=== PATIENT | female | born 1965 | race Caucasian/White ===

== ENCOUNTER 2017-09-24 11:00 | Outpatient (CLI) | payer MEDICARE | END 2017-09-24 11:01 | disposition home or self-care (01) | LOC: BICMAMMO 11:00 | PROVIDERS: ATTEND Family Medicine | DX: Z12.31 Encounter for screening mammogram for malignant neoplasm of breast (principal); Z80.3 Family history of malignant neoplasm of breast | CPT/HCPCS: 77063; 77067 ==

== ENCOUNTER 2017-10-23 11:22 | Outpatient (CLI) | payer MEDICARE ==
--- NOTE | 2017-10-23 13:21 | CT ---
NONCONTRAST CT PULMONARY LUNG SCAN: CLINICAL HISTORY: Pulmonary screening. History of smoking. Family history of lung cancer. FINDINGS: There is no evidence of a suspicious pulmonary nodule, pulmonary mass, lobar consolidation, or pleura l effusion. There is mild subpleural, dependent atelectasis. Scattered vascular disease, including coronary artery calcium, is present. There is incidental note of multilevel degenerative change. Sclerosis and endplate irregularity at the presumed C7 segment ma y relate to a degenerative etiology, although it is incompletely assessed on the basis of this exam. IMPRESSION: Lung-RADS primary category 1 - No nodules demonstrated. Recommend continued annual screening with low dose CT in 12 months. Incidental note of vascular disease, including coronary artery calcification. Recommend appropriate clinical followup. POS: [facility]
== END 2017-10-23 11:23 | disposition home or self-care (01) ==
LOC: CT 11:22
PROVIDERS: ATTEND Family Medicine
DX: Z87.891 Personal history of nicotine dependence (principal)
CPT/HCPCS: G0297

== ENCOUNTER 2018-07-08 22:03 | Emergency (ER) | payer MEDICARE ==
[2018-07-08] MEDS ORDERED: Morphine 4 MG/ML VIAL ONE (23:08)
[2018-07-08 23:13] LABS: #Eosinphils 0.3 thou/uL (0.0-0.7); #Lymphocytes 1.5 thou/uL (1.20-3.40); #Monocytes 0.6 thou/uL (0.11-0.59); #Neutrophils 3.2 thou/uL (1.40-6.50); %Basophils 0.6 % (0.0-1.0); %Eosinophils 5.3 % (0.0-10.0); %Lymphocytes 27.5 % (21.0-51.0); %Monocytes 10.1 % (0.0-10.0); %Neutrophils 56.6 % (42.0-75.0); Mean Corpuscular HGB CONC 32.7 g/dL (32.0-36.0); Mean Corpuscular Hemoglobin 28.9 pg (27.0-31.0); Mean Corpuscular Volume 88.6 fL (78.0-98.0); Mean Platelet Volume 8.5 fL (7.4-10.4); Platelet Count 194 thou/uL (130-400); RBC Distribution Width 12.6 % (11.5-14.5); Red Blood Cell (RBC) Count 4.15 mill/uL (4.20-5.40); White Blood Cell (WBC) Count 5.6 thou/uL (4.8-10.8)
[2018-07-08 23:23] LABS: BHCG - Serum Negative (NEGATIVE); Pregs Control Background? CLEAR/WHITE (CLR/WHITE); Pregs Control Bar Appear? YES (CONTROL BAR)
[2018-07-08 23:32] LABS: ALT (SGPT) 24 U/L (8-55); AST (SGOT) 20 U/L (5-34); Albumin 4.3 g/dL (3.5-5.0); Alkaline Phosphatase 88 U/L (40-150); Anion Gap 12 mmol/L (10-20); BUN (Urea Nitrogen) 20 mg/dL (9.8-20.1); Bilirubin, Total 0.2 mg/dL (0.2-1.2); Calc. Creatinine Clearance 0 mL/min (70-130); Calcium 9.5 mg/dL (7.8-10.44); Carbon Dioxide 25 mmol/L (22-29); Chloride 106 mmol/L (98-107); Estimated GFR-MDRD 70; Globulin 2.4 g/dL (2.4-3.5); Glucose 118 mg/dL (70-105); Potassium 3.5 mmol/L (3.5-5.1); Protein, Total 6.7 g/dL (6.0-8.3); Sodium 139 mmol/L (136-145)
[2018-07-08 23:35] LABS: Bilirubin Negative (Negative); Blood, Urine Negative (Negative); Clarity CLEAR (Clear); Glucose, Urine (Dipstick) Negative (Negative); Leukocyte Negative (Negative); Nitrite Negative (Negative); Protein, Urine (Dipstick) Negative (Neg-Trace); Specific Gravity, Urine 1.007 (1.002-1.036); Urobilinogen 0.2 mg/dL (0.2-1.0); pH, Urine 6.5 (5.0-9.0)
--- NOTE | 2018-07-09 00:04 | CT ---
CT of abdomen and pelvis: 07/08/2018 COMPARISON: None HISTORY: Back pain, right-sided abdominal pain TECHNIQUE: Axial CT imaging at 5 mm intervals from lung bases through pubic symphysis without contras t. Coronal reformatted imaging obtained. FINDINGS: Lack of contrast media limits assessment of the viscera, bowel, vascular structures, and fo r lymphadenopathy. The visualized lung bases are unremarkable. No free intraperitoneal air or fluid. There is a benign-a ppearing small calcification near the liver dome. The gallbladder, spleen, pancreas, adrenal glands, and kidneys appear unremarkable. No evidence for nephrolithiasis or obstructive uropathy is n oted on either side. Limited assessment of the bowel demonstrates diverticulosis of the sigmoid colon with no evidence for diverticulitis. The appendix is unremarkable. There is multifocal atherosclerotic calcification of the abdominal aorta and its branches. Review of the osseous structures demonstrates lower lumbar spine facet hypertrophy and degenerative d isc disease at L4-5. No acute osseous abnormality is noted. IMPRESSION: No nephrolithiasis or evidence of obstructive uropathy.
== END 2018-07-09 00:22 | disposition home or self-care (01) ==
LOC: ERS 22:03
DX: R10.31 Right lower quadrant pain (principal); E78.5 Hyperlipidemia, unspecified; I10 Essential (primary) hypertension; F17.210 Nicotine dependence, cigarettes, uncomplicated; Z79.899 Other long term (current) drug therapy
CPT/HCPCS: 36415; 74176; 80053; 81003; 84703; 85025; 96374; J2270

== ENCOUNTER 2019-06-13 09:44 | Observation (INO) | payer MEDICARE ==
[2019-06-13] MEDS ORDERED: Nitroglycerin 0.4 MG TAB 1 EACH ONE (10:09)
[2019-06-13] MEDS ORDERED: Aspirin Chewable 81 MG TAB ONE (10:09)
--- NOTE | 2019-06-13 10:21 | RAD ---
AP CHEST: Date: 06/13/2019 HISTORY: Chest pain. FINDINGS: The lung caicedo are clear. Heart and mediastinum appear normal. Vasculature normal. IMPRESSION: No acute findings. POS: [facility]
[2019-06-13 10:29] LABS: #Eosinphils 0.2 thou/uL (0.0-0.7); #Lymphocytes 1.5 thou/uL (1.20-3.40); #Monocytes 0.3 thou/uL (0.11-0.59); #Neutrophils 2.9 thou/uL (1.40-6.50); %Basophils 0.4 % (0.0-1.0); %Eosinophils 4.3 % (0.0-10.0); %Lymphocytes 30.3 % (21.0-51.0); %Monocytes 5.9 % (0.0-10.0); Hemoglobin 14.3 g/dL (12.0-16.0); Mean Corpuscular HGB CONC 33.9 g/dL (32.0-36.0); Mean Corpuscular Hemoglobin 30.1 pg (27.0-31.0); Mean Corpuscular Volume 88.7 fL (78.0-98.0); Mean Platelet Volume 8.2 fL (7.4-10.4); Platelet Count 232 thou/uL (130-400); RBC Distribution Width 12.5 % (11.5-14.5); Red Blood Cell (RBC) Count 4.75 mill/uL (4.20-5.40); White Blood Cell (WBC) Count 4.9 thou/uL (4.8-10.8)
[2019-06-13 10:59] LABS: ALT (SGPT) 29 U/L (8-55); AST (SGOT) 21 U/L (5-34); Albumin 4.7 g/dL (3.5-5.0); Alkaline Phosphatase 102 U/L (40-110); Anion Gap 13 mmol/L (10-20); BUN (Urea Nitrogen) 15 mg/dL (9.8-20.1); Bilirubin, Total 0.3 mg/dL (0.2-1.2); Calc. Creatinine Clearance 0 mL/min (70-130); Carbon Dioxide 29 mmol/L (22-29); Chloride 103 mmol/L (98-107); Estimated GFR-MDRD 65; Globulin 2.6 g/dL (2.4-3.5); Glucose 110 mg/dL (70-105); Potassium 3.7 mmol/L (3.5-5.1); Protein, Total 7.3 g/dL (6.0-8.3); Sodium 141 mmol/L (136-145)
[2019-06-13 14:05] VITALS: BMI 33.0
[2019-06-13 14:23] LABS: Troponin I Less than 0.010 ng/mL (< 0.028)
[2019-06-13] MEDS: Ibuprofen 200 MG TAB PO PRN (14:43)
[2019-06-13] MEDS ORDERED: Acetaminophen 500 MG TAB PO PRN (14:47)
[2019-06-13] MEDS ORDERED: hydrALAZINE 20 MG/ML VIAL SLOW IVP PRN (14:47)
[2019-06-13] MEDS ORDERED: Ondansetron ODT 4 MG TAB PO PRN (14:47)
[2019-06-13] MEDS ORDERED: Nitroglycerin 0.4 MG TAB (25 Tab Bottle) PO PRN (14:47)
[2019-06-13] MEDS ORDERED: Ondansetron PF 4 MG/2 ML Vial IVP PRN (14:47)
[2019-06-13 17:14] LABS: Troponin I Less than 0.010 ng/mL (< 0.028)
--- NOTE | 2019-06-13 19:13 | HP ---
PRIMARY CARE PROVIDER: Dr. Karon Terry. CHIEF COMPLAINT: Chest pain. HISTORY OF PRESENT ILLNESS: This is a 53-year-old female, who presents to [facility] Emergency Department complaining of 1 to 2 day history of increasing left upper chest wall, left arm, and neck pain. The patient noted increasing tightness in her upper neck and lower suboccipital region approximately a week prior to this evaluation. The patient noted some increased pain in her shoulder and axillary region on the left. The patient became concerned when she felt like she was having a heart condition. The patient states she underwent a cardiac catheterization approximately 2 years prior to this evaluation showing a 50% stenosis, treated medically. The patient states she has not had a followup stress test or followup with her radiosonde operator, Dr. Null, since the heart catheterization. The patient denied any prominent cough, fever, chills, trauma, repetitive injury, or travel history. The patient denies any family members who are sick. The patient admits that she has been compliant with her medication regimen and takes aspirin 325 mg daily. The patient states she had no positional changes to her pain and did not take any other home remedies for relief. In the emergency room, the patient underwent general evaluation including basic metabolic screening, cardiac biomarkers, and chest imaging, which were all negative. The patient received sublingual nitroglycerin and aspirin 324 mg. PAST MEDICAL HISTORY: 1. Coronary artery disease, medically managed. 2. Hypertension, stable. 3. Hyperlipidemia. 4. Tobacco abuse, ongoing. PAST SURGICAL HISTORY: 1. Status post cardiac catheterization. 2. Status post spinal surgery x3. 3. Status post repair of right index finger. 4. Status post section. CURRENT MEDICATIONS: 1. Amlodipine 10 mg p.o. daily. 2. Aspirin 325 mg p.o. daily. 3. [place]-3 fatty acids 1000 mg p.o. daily. 4. Hydrochlorothiazide 12.5 mg p.o. daily. 5. Ibuprofen 600 mg p.o. q.8 hours p.r.n. 6. Metoprolol tartrate 50 mg p.o. daily. 7. Aleve 220 mg p.o. b.i.d. 8. Crestor 10 mg p.o. daily. ALLERGIES: LISINOPRIL. FAMILY HISTORY: Positive for factor V Leiden deficiency. Father with a history of myocardial infarction in his 50s. SOCIAL HISTORY: and resides in [place], [place]. Smokes up to half a pack of cigarettes daily. No alcohol or illicit drug use. Functional of all activities of daily living. Unemployed. REVIEW OF SYSTEMS: CONSTITUTIONAL: Negative for weight loss or gain, ability to conduct usual activities. SKIN: Negative for rash, itching. EYES: Negative for double vision, pain. ENT/MOUTH: Negative for nose bleeding, neck stiffness, pain, tenderness. CARDIOVASCULAR: Negative for palpitations, dyspnea on exertion, orthopnea. RESPIRATORY: Negative for shortness of breath, wheezing, cough, hemoptysis, fever or night sweats. GASTROINTESTINAL: Negative for poor appetite, abdominal pain, heartburn, nausea, vomiting, constipation, or diarrhea. GENITOURINARY: Negative for urgency, frequency, dysuria, nocturia. MUSCULOSKELETAL: Negative for pain, swelling. NEUROLOGIC/PSYCHIATRIC: Negative for anxiety, depression. ALLERGY/IMMUNOLOGIC: Negative for skin rash, bleeding tendency. Otherwise, negative except as stated per HPI. PHYSICAL EXAMINATION: VITAL SIGNS: On admission, blood pressure 138/74, pulse 78, respiratory rate 18, temperature 98.2 degrees Fahrenheit, and O2 saturation 97% on room air. GENERAL APPEARANCE: This is a 53-year-old female, alert and oriented x3, pleasant, conversant, in no acute distress. HEENT: Pupils are equal, round, reactive to light and accommodation. Extraocular muscles are intact. No scleral icterus. No conjunctival injection. Nares are patent. OP is clear. Teeth in fair repair. NECK: Supple. No cervical adenopathy. No thyromegaly. No carotid bruits. No JVD appreciated. Cervical spine with full active and passive range of motion. Mild tenderness to palpation in the paravertebral musculature of the cervical spine, left greater than right. No meningeal signs noted. No thyromegaly. CHEST: Lungs are clear to auscultation bilaterally. CARDIOVASCULAR: S1 and S2 without noted murmur, rub, or gallop. ABDOMEN: Obese, soft, nontender, and nondistended. Bowel sounds are positive in all 4 quadrants. There is no hepatosplenomegaly. No abdominal bruits. No rebound or guarding appreciated. EXTREMITIES: Warm and dry with fair turgor. No clubbing, cyanosis, or asymmetric edema appreciated. Pulses palpable distally at the dorsalis pedis, posterior tibial, and popliteal arteries bilaterally. Capillary refill less than 2 seconds. NEUROLOGIC: Cranial nerves 2 through 12 are grossly intact. No focal or lateralizing signs appreciated. PERTINENT LABORATORY AND X-RAY FINDINGS: Complete metabolic profile within normal limits. Troponin I negative x2. CBC within normal limits. Portable chest x-ray dated 06/13/2019 showed no acute cardiopulmonary process. EKG dated 06/13/2019 by my interpretation shows sinus mechanism with heart rates in the 70s. Normal R-wave progression noted in the precordial leads. T-wave inversion in lead V1 and V2. Normal axis. No acute ST-T wave changes appreciated. ASSESSMENT AND PLAN: 1. Chest pain. We will place in observation status on the telemetry unit. We will continue serial cardiac biomarkers to complete a third set. We will proceed with exercise Cardiolite stress testing in the a.m. Check fasting lipid profile. Continue aspirin 325 mg daily. 2. Hypertension. Continue home blood pressure regimen and monitor clinical response. 3. Tobacco abuse. We will offer smoking cessation resources prior to discharge. 4. Coronary artery disease. Medically managed as an outpatient. We will continue workup as stated in #1. No current evidence to suggest acute coronary syndrome. 5. Prophylaxis. SCDs while in bed. Pepcid 20 mg p.o. b.i.d. 6. Code status is full. Surrogate medical decision maker is the patient's spouse. Job ID: [id number]
[2019-06-13] MEDS: Famotidine 20 MG TAB PO SCH (22:57)
[2019-06-14 05:17] LABS: Cardiac Risk 4.1 (Less than 4.5)
[2019-06-14] MEDS: Amlodipine 10 MG TAB PO SCH (08:03)
[2019-06-14] MEDS: Famotidine 20 MG TAB PO SCH ×2 (08:03→21:38)
[2019-06-14] MEDS: Rosuvastatin 10 MG TAB PO SCH (08:03)
[2019-06-14] MEDS ORDERED: Aspirin 325 MG TAB PO SCH (09:00)
[2019-06-14] MEDS ORDERED: Fish Oil 1,000 MG CAP PO SCH (09:00)
--- NOTE | 2019-06-14 09:04 | PDOC.HOSPP ---
- Subjective Encounter Date: 06/14/19 Encounter Time: 12:10 Subjective: Patient with some persistent soreness to left anteriolateral chest wall and shoulder. No other symptoms. - Objective Vital Signs & Weight: Vital Signs (12 hours) Temp Pulse Resp BP BP Pulse Ox 06/14/19 07:21 98.5 F 76 18 147/74 H 95 06/14/19 03:56 98.9 F 70 14 110/60 95 Weight Weight 192 lb 14.472 oz Result Diagrams: 06/13/19 10:19 06/13/19 10:19 Hospitalist ROS - Review of Systems Constitutional: denies: fever, chills Respiratory: denies: cough, shortness of breath Cardiovascular: reports: chest pain. denies: palpitations, orthopnea Gastrointestinal: denies: nausea, vomiting, abdominal pain - Medication Medications: Active Medications Generic Name Dose Route Start Last Admin Trade Name Freq PRN Reason Stop Dose Admin Amlodipine Besylate 10 mg 06/14/19 09:00 06/14/19 08:03 Norvasc PO 10 mg DAILY NORMAN Administration Aspirin 325 mg 06/14/19 09:00 06/14/19 08:03 Aspirin PO 325 mg DAILY NORMAN Administration Famotidine 20 mg 06/13/19 21:00 06/14/19 08:03 Pepcid PO 20 mg BID NORMAN Administration Fish Oil 1,000 mg 06/14/19 09:00 06/14/19 08:03 Fish Oil PO 1,000 mg DAILY NORMAN Administration Ibuprofen 400 mg 06/13/19 14:24 06/13/19 14:43 Motrin PO 400 mg Q6H PRN Administration Pain Rosuvastatin Calcium 10 mg 06/14/19 09:00 06/14/19 08:03 Crestor PO 10 mg DAILY NORMAN Administration - Exam General Appearance: NAD, awake alert ENT: moist mucosa Heart: RRR, no murmur, no gallops, no rubs Respiratory: CTAB, no wheezes, no rales Respiratory - other findings: some TTP left anterior chest wall Gastrointestinal: soft, non-tender, non-distended, normal bowel sounds Extremities: no edema Psychiatric: normal affect, normal behavior, A&O x 3 Hosp A/P (1) Chest pain, rule out acute myocardial infarction Code(s): R07.9 - CHEST PAIN, UNSPECIFIED Status: Acute (2) CAD (coronary artery disease) Code(s): I25.10 - ATHSCL HEART DISEASE OF [place] CORONARY ARTERY W/O ANG PCTRS Status: Chronic Qualifiers: Coronary Disease-Associated Artery/Lesion type: [place] artery (3) HTN (hypertension) Code(s): I10 - ESSENTIAL (PRIMARY) HYPERTENSION Status: Chronic (4) HLD (hyperlipidemia) Code(s): E78.5 - HYPERLIPIDEMIA, UNSPECIFIED Status: Chronic (5) Tobacco abuse Code(s): Z72.0 - TOBACCO USE Status: Chronic - Plan Pain most likely musculoskeletal, however patient with some abnormality on the stress test. I spoke with Dr. Aguilera and he will evaluate the patient and determine if she can go home or needs cath. Continue BP meds and statin Home when ok with cardiology.
[2019-06-14] MEDS: Metoprolol Tartrate 50 MG TAB PO SCH (09:29)
--- NOTE | 2019-06-14 11:42 | NM ---
EXAM: NM Cardiac Stress W EF WF PROVIDED CLINICAL HISTORY: Chest pain. History of cardiac catheterization 2 years ago. History coronary artery disease and hyper tension. COMPARISON: None FINDINGS: This examination was performed as an exercise stress myocardial perfusion study following the routine Arivn protocol. The resting heart rate is 67 bpm with maximal heart rate of 146 bpm. This represents 87% of the maximal predicted affective heart rate. There is normal uptake and distribution of radiotracer seen throughout the left ventricular myocardiu m. No reversible defect is seen between the stress and resting acquisitions. Quantitative analysis also shows no significant reversible defect. Gated images show normal ventricular wall motion and wal l thickening. The transient ischemic dilatation ratio is elevated at 1.3, and a normal ratio is 1.22 or less. Calculated left ventricular ejection fraction is 82%. IMPRESSION: 1. Normal myocardial perfusion study without evidence of a reversible defect seen to suggest ischemia . 2. Normal LVEF of 82%. 3. Elevation in transient ischemic dilatation ratio which is 1.3
[2019-06-14] MEDS: Ibuprofen 200 MG TAB PO PRN (14:21)
[2019-06-14] MEDS: Nicotine 14 MG PATCH TOP SCH (17:38)
--- NOTE | 2019-06-14 18:50 | CON ---
DATE OF CONSULTATION: HISTORY OF PRESENT ILLNESS: The patient is a 53-year-old woman who presents for evaluation of chest discomfort. The patient was seen initially in 2018. She underwent a cardiac catheterization and found to have a 50% LAD lesion. The patient was placed on medical therapy. She unfortunately has continued to smoke. The patient states about a week prior to admission, she developed neck discomfort. The patient subsequently developed pain down her left arm. For the past 2 days , she has noticed having left-sided chest discomfort that lasted several minutes. She came to the emergency room where she received nitroglycerin with temporary resolution of her discomfort. The patient reports she continues to have chest discomfort. The patient states her discomfort is associated with dyspnea. PAST MEDICAL HISTORY: 1. Coronary artery disease. 2. Hypertension. 3. Dyslipidemia. PAST SURGICAL HISTORY: 1. Back surgery. 2. . 3. Eye surgery. 4. Finger surgery. SOCIAL HISTORY: The patient smokes a half pack per day. ALLERGIES: LISINOPRIL. FAMILY HISTORY: Positive for family history of heart disease. REVIEW OF SYSTEMS: Ten-point system otherwise unremarkable. PHYSICAL EXAMINATION: GENERAL: A well-developed woman, in no acute distress. VITAL SIGNS: Blood pressure 117/63. NECK: No jugular venous distention. LUNGS: Clear to auscultation. HEART: Regular rate and rhythm. Normal S1 and S2. No murmurs. ABDOMEN: Nondistended. EXTREMITIES: No edema. VASCULAR: Radial pulses are 2+. LABORATORY DATA: Sodium 141, potassium 3.7, chloride 103, bicarbonate 29, BUN 15, creatinine 0.91, and glucose 110. Troponin less than 0.01. Her White blood cell count 4.9, hemoglobin 14.3, hematocrit 42.1, and platelets 232. EKG revealed normal sinus rhythm with a T-wave abnormality, suggestive of ischemia. Cardiolite stress test, :The patient exercised for 5 minutes and 30 seconds on a Arvin protocol. There was no evidence of ischemia. The ejection rate was 82%. The TID was 1.3. IMPRESSION: 1. Chest pain with some features suggestive of angina. 2. History of coronary artery disease. 3. Hypertension. 4. Dyslipidemia. 5. Tobacco abuse. PLAN: The patient had TID on the nuclear stress test. Her chest pain has some features suggestive of ischemic heart disease. I will treat the patient's with Lovenox. I would highly recommend the patient discontinue smoking. We will switch the patient to Vascepa for protection against cardiac events. We will follow this patient with you through her hospitalization. Job ID: [id number] MTDD
[2019-06-14] MEDS: Nitroglycerin 2% Ointment 1 INCH/1 GM Packet TOP SCH (21:37)
[2019-06-14] MEDS: Enoxaparin Sodium 100 MG/ML SYRINGE SC SCH (21:38)
[2019-06-14] MEDS: Icosapent Ethyl 1 GM CAPSULE PO SCH (21:42)
[2019-06-15] MEDS: Nitroglycerin 2% Ointment 1 INCH/1 GM Packet TOP SCH ×3 (04:48→20:05)
[2019-06-15] MEDS: Ibuprofen 200 MG TAB PO PRN ×2 (04:51→17:15)
--- NOTE | 2019-06-15 08:20 | PDOC.HOSPP ---
- Subjective Encounter Date: 06/15/19 Encounter Time: 11:00 Subjective: Chest pain improved, though still with some. No SOB. - Objective Vital Signs & Weight: Vital Signs (12 hours) Temp Pulse Resp BP Pulse Ox 06/15/19 07:40 98.2 F 76 13 132/83 96 06/15/19 03:41 98.5 F 79 16 114/62 94 L Weight Weight 192 lb 14.472 oz I&O: 06/14/19 06/15/19 06/16/19 06:59 06:59 06:59 Intake Total 750 Balance 750 Result Diagrams: 06/13/19 10:19 06/13/19 10:19 Hospitalist ROS - Review of Systems Constitutional: denies: fever, chills Respiratory: denies: cough, shortness of breath Cardiovascular: reports: chest pain. denies: palpitations, orthopnea Gastrointestinal: denies: nausea, vomiting, abdominal pain - Medication Medications: Active Medications Generic Name Dose Route Start Last Admin Trade Name Freq PRN Reason Stop Dose Admin Amlodipine Besylate 10 mg 06/14/19 09:00 06/14/19 08:03 Norvasc PO 10 mg DAILY NORMAN Administration Enoxaparin Sodium 90 mg 06/14/19 21:00 06/14/19 21:38 Lovenox SC 90 mg 0900,2100 NORMAN Administration Famotidine 20 mg 06/13/19 21:00 06/14/19 21:38 Pepcid PO 20 mg BID NORMAN Administration Ibuprofen 400 mg 06/13/19 14:24 06/15/19 04:51 Motrin PO 400 mg Q6H PRN Administration Pain Metoprolol Tartrate 50 mg 06/14/19 09:00 06/14/19 09:29 Lopressor PO Not Given DAILY NORMAN Miscellaneous Medication 2 gm 06/14/19 21:00 06/14/19 21:42 Vascepa PO 2 gm BID NORMAN Administration Nicotine 14 mg 06/14/19 18:00 06/14/19 17:38 Nicoderm Patch TOP 14 mg Q24HR NORMAN Administration Nitroglycerin 0.5 inch 06/14/19 22:00 06/15/19 04:48 Nitro-Bid 2% Ointment TOP 0.5 inch Q8HR NORMAN Administration Rosuvastatin Calcium 10 mg 06/14/19 09:00 06/14/19 08:03 Crestor PO 10 mg DAILY NORMAN Administration - Exam General Appearance: NAD, awake alert ENT: moist mucosa Heart: RRR, no murmur, no gallops, no rubs Respiratory: CTAB, no wheezes, no rales, no ronchi Gastrointestinal: soft, non-tender, non-distended, normal bowel sounds Psychiatric: normal affect, normal behavior, A&O x 3 Hosp A/P (1) Chest pain, rule out acute myocardial infarction Code(s): R07.9 - CHEST PAIN, UNSPECIFIED Status: Acute (2) CAD (coronary artery disease) Code(s): I25.10 - ATHSCL HEART DISEASE OF [place] CORONARY ARTERY W/O ANG PCTRS Status: Chronic Qualifiers: Coronary Disease-Associated Artery/Lesion type: [place] artery (3) HTN (hypertension) Code(s): I10 - ESSENTIAL (PRIMARY) HYPERTENSION Status: Chronic (4) HLD (hyperlipidemia) Code(s): E78.5 - HYPERLIPIDEMIA, UNSPECIFIED Status: Chronic (5) Tobacco abuse Code(s): Z72.0 - TOBACCO USE Status: Chronic - Plan TID elevated on stress test, Dr. Aguilera consulted, started Lovenox and adjusting medications, possible cath tomorrow by Dr. Null Continue BP meds and statin
[2019-06-15] MEDS: Amlodipine 10 MG TAB PO SCH (08:31)
[2019-06-15] MEDS: Aspirin Chewable 81 MG TAB PO SCH (08:32)
[2019-06-15] MEDS: Enoxaparin Sodium 100 MG/ML SYRINGE SC SCH ×2 (08:34→20:04)
[2019-06-15] MEDS: Icosapent Ethyl 1 GM CAPSULE PO SCH ×2 (08:35→20:04)
[2019-06-15] MEDS: Metoprolol Tartrate 50 MG TAB PO SCH (08:35)
[2019-06-15] MEDS: Rosuvastatin 10 MG TAB PO SCH (08:35)
[2019-06-15] MEDS: Famotidine 20 MG TAB PO SCH ×2 (08:37→20:04)
[2019-06-15] MEDS: Nicotine 14 MG PATCH TOP SCH (17:15)
[2019-06-16] MEDS: Rosuvastatin 10 MG TAB PO SCH (05:53)
[2019-06-16] MEDS: Aspirin Chewable 81 MG TAB PO SCH (05:53)
[2019-06-16] MEDS: Amlodipine 10 MG TAB PO SCH (05:54)
[2019-06-16] MEDS: Famotidine 20 MG TAB PO SCH ×2 (05:54→21:00)
[2019-06-16] MEDS: Icosapent Ethyl 1 GM CAPSULE PO SCH ×2 (05:54→21:00)
[2019-06-16] MEDS: Metoprolol Tartrate 50 MG TAB PO SCH (05:54)
[2019-06-16] MEDS: Nitroglycerin 2% Ointment 1 INCH/1 GM Packet TOP SCH ×3 (05:55→21:01)
--- NOTE | 2019-06-16 07:02 | PDOC.HOSPP ---
- Subjective Encounter Date: 06/16/19 Encounter Time: 09:50 Subjective: Patient just back from cath. Mild chest wall pain. No other complaints. - Objective Vital Signs & Weight: Vital Signs (12 hours) Temp Pulse Resp BP BP Pulse Ox 06/16/19 05:54 77 116/81 06/16/19 03:40 97.7 F 77 18 116/81 95 06/15/19 20:00 98.2 F 78 18 142/72 H 98 Weight Weight 192 lb 14.472 oz I&O: 06/15/19 06/16/19 06/17/19 06:59 06:59 06:59 Intake Total 750 1540 Balance 750 1540 Result Diagrams: 06/13/19 10:19 06/13/19 10:19 Hospitalist ROS - Review of Systems Constitutional: denies: fever, chills Respiratory: denies: cough, shortness of breath Cardiovascular: reports: chest pain. denies: palpitations, orthopnea Gastrointestinal: denies: nausea, vomiting, abdominal pain - Medication Medications: Active Medications Generic Name Dose Route Start Last Admin Trade Name Freq PRN Reason Stop Dose Admin Amlodipine Besylate 10 mg 06/14/19 09:00 06/16/19 05:54 Norvasc PO 10 mg DAILY NORMAN Administration Aspirin 81 mg 06/15/19 09:00 06/16/19 05:53 Aspirin Chewable PO 81 mg DAILY NORMAN Administration Famotidine 20 mg 06/13/19 21:00 06/16/19 05:54 Pepcid PO 20 mg BID NORMAN Administration Ibuprofen 400 mg 06/15/19 17:08 06/15/19 17:15 Motrin PO 400 mg Q6H PRN Administration Pain Metoprolol Tartrate 50 mg 06/14/19 09:00 06/16/19 05:54 Lopressor PO 50 mg DAILY NORMAN Administration Miscellaneous Medication 2 gm 06/14/19 21:00 06/16/19 05:54 Vascepa PO 2 gm BID NORMAN Administration Nicotine 14 mg 06/14/19 18:00 06/15/19 17:15 Nicoderm Patch TOP 14 mg Q24HR NORMAN Administration Nitroglycerin 0.5 inch 06/14/19 22:00 06/16/19 05:55 Nitro-Bid 2% Ointment TOP Not Given Q8HR [facility] Rosuvastatin Calcium 10 mg 06/14/19 09:00 06/16/19 05:53 Crestor PO 10 mg DAILY NORMAN Administration - Exam General Appearance: NAD, awake alert ENT: moist mucosa Heart: RRR, no murmur, no gallops, no rubs Respiratory: CTAB, no wheezes, no rales, no ronchi Gastrointestinal: soft, non-tender, non-distended, normal bowel sounds Musculoskeletal: normal tone, normal strength Psychiatric: normal affect, normal behavior, A&O x 3 Hosp A/P (1) Chest pain, rule out acute myocardial infarction Code(s): R07.9 - CHEST PAIN, UNSPECIFIED Status: Acute (2) CAD (coronary artery disease) Code(s): I25.10 - ATHSCL HEART DISEASE OF [place] CORONARY ARTERY W/O ANG PCTRS Status: Chronic Qualifiers: Coronary Disease-Associated Artery/Lesion type: [place] artery (3) HTN (hypertension) Code(s): I10 - ESSENTIAL (PRIMARY) HYPERTENSION Status: Chronic (4) HLD (hyperlipidemia) Code(s): E78.5 - HYPERLIPIDEMIA, UNSPECIFIED Status: Chronic (5) Tobacco abuse Code(s): Z72.0 - TOBACCO USE Status: Chronic - Plan Cath with progression of RCA disease, no intervention, also with 50% LAD lesion with sluggish flow resolved with adenosine No stents, no surgery recommended. Dr. Null to adjust medications Continue BP meds and statin Home when ok with Dr. Null
[2019-06-16] MEDS ORDERED: Iopamidol 370 76% 100 ML VIAL ONE (08:08)
--- NOTE | 2019-06-16 08:12 | PDOC.CPN ---
- Subjective Date: 06/16/19 Time: 08:00 - Review of Systems General: reports: fever/chills Respiratory: reports: cough, congestion Cardiovascular: reports: chest pain Gastrointestinal: reports: nausea, vomiting Musculoskeletal: reports: swelling Neurological: reports: weakness - Objective Allergies/Adverse Reactions: Allergies Allergy/AdvReac Type Severity Reaction Status Date / Time lisinopril Allergy Verified 06/13/19 13:01 Visit Medications: Current Medications Acetaminophen (Tylenol) 1,000 mg PO Q6H PRN PRN Reason: Mild Pain (1-3) Amlodipine Besylate (Norvasc) 10 mg PO DAILY [facility] Last Admin: 06/16/19 05:54 Dose: 10 mg Aspirin (Aspirin Chewable) 81 mg PO DAILY [facility] Last Admin: 06/16/19 05:53 Dose: 81 mg Famotidine (Pepcid) 20 mg PO BID [facility] Last Admin: 06/16/19 05:54 Dose: 20 mg Hydralazine HCl (Apresoline) 10 mg SLOW IVP Q4H PRN PRN Reason: SBP > 180 and HR < 70 Ibuprofen (Motrin) 400 mg PO Q6H PRN PRN Reason: Pain Last Admin: 06/15/19 17:15 Dose: 400 mg Metoprolol Tartrate (Lopressor) 50 mg PO DAILY [facility] Last Admin: 06/16/19 05:54 Dose: 50 mg Miscellaneous Medication (Vascepa) 2 gm PO BID [facility] Last Admin: 06/16/19 05:54 Dose: 2 gm Nicotine (Nicoderm Patch) 14 mg TOP Q24HR [facility] Last Admin: 06/15/19 17:15 Dose: 14 mg Nitroglycerin (Nitrostat) 0.4 mg PO Q5MIN PRN PRN Reason: Chest Pain Nitroglycerin (Nitro-Bid 2% Ointment) 0.5 inch TOP Q8HR [facility] Last Admin: 06/16/19 05:55 Dose: Not Given Ondansetron HCl (Zofran Odt) 4 mg PO Q6H PRN PRN Reason: Nausea/Vomiting Ondansetron HCl (Zofran) 4 mg IVP Q6H PRN PRN Reason: Nausea/Vomiting Rosuvastatin Calcium (Crestor) 10 mg PO DAILY [facility] Last Admin: 06/16/19 05:53 Dose: 10 mg Vital Signs & Weight: Vital Signs Temp Pulse Resp BP BP Pulse Ox 06/16/19 07:07 98.1 F 63 16 123/78 98 06/16/19 05:54 77 116/81 06/16/19 03:40 97.7 F 77 18 116/81 95 Weight 192 lb 14.472 oz - Quality Measures Condition: Coronary Artery Disease CV meds: Beta Padmini: Yes, Statin: Yes, ASA: Yes - Physical Exam General: alert & oriented x3 HEENT: normocephaly Neck: supple neck, no masses, no lymphadenopathy Cardiac: regular rate and rhythm Lungs: clear to auscultation Neuro: grossly intact Abdomen: unremarkable Extremities: no cyanosis, no clubbing, no edema Musculoskeletal: normal range of motion - Labs Result Diagrams: 06/13/19 10:19 06/13/19 10:19 Troponin/CKMB Troponin I Less than 0.010 ng/mL (< 0.028) 06/13/19 16:30 - Telemetry Sinus rhythms and dysrhythmias: sinus rhythm (early AM while sleeping, sinus marlon. one episode of 2.6 second pause.) - Assessment/Plan Assessment/Plan: 1. Chest pain, hx. of CAD, RCA 5o% in 2018. Calcium and plaque in proximal LAD. elevated TID ratio on nucklear study this admission. The pain started in the neck posteriorly and then radiated down the arm. She occasionally has chest pain in the lateral pectrial area that is associated with the arm pain. She has point tendernes in the upper pain with pain radiating down the arm when pressure is applied over the area. I suspect she has a nerve impingement but due to her prior history of CAD and an abnormal stress test it may be better to re-evaluate the coronaries.. 2. Tobacco abuse. She had stopped smoking about 2 years ago but recently resumed the habit about 2 months ago, she says she will stop again, she was trying to lose weight, 3. Dyslipidemia. Continue statin. 4. HTN. Continue betablocker. I have discusssed the cath procedure and risks to include bleeding,infection,NC, CVA renal insufficiency,allergic reaction or . She understands and agrees to proceed with the cath.
[2019-06-16] MEDS ORDERED: Verapamil 5 MG/2 ML VIAL ONE (08:27)
[2019-06-16] MEDS ORDERED: Heparin 10,000 UNITS/1 ML VIAL ONE (08:27)
[2019-06-16] MEDS ORDERED: Nitroglycerin 100MG/250ML BOT 250 ML ONE (08:27)
[2019-06-16] MEDS ORDERED: Midazolam HCl 2 mg/2 ml Vial ONE (08:31)
[2019-06-16] MEDS ORDERED: Fentanyl 100 MCG/2 ML VIAL ONE (08:31)
[2019-06-16] MEDS ORDERED: Adenosine 6 MG/2 ML VIAL ONE (09:20)
[2019-06-16] MEDS ORDERED: Nitroglycerin 0.4 MG TAB (25 Tab Bottle) SL PRN (10:07)
[2019-06-16] MEDS ORDERED: Acetaminophen/Codeine 30-300mg Tablet PO PRN ×2 (10:07)
[2019-06-16] MEDS ORDERED: Sodium Chloride 0.9% 200 ML IV PRN (10:07)
[2019-06-16] MEDS: Ibuprofen 200 MG TAB PO PRN (13:07)
[2019-06-17] MEDS: Nitroglycerin 2% Ointment 1 INCH/1 GM Packet TOP SCH (06:02)
--- NOTE | 2019-06-17 07:39 | PDOC.HOSPP ---
- Subjective Encounter Date: 06/17/19 Encounter Time: 10:30 Subjective: Patient with improved chest pain. No SOB. Ready to go home. - Objective Vital Signs & Weight: Vital Signs (12 hours) Temp Pulse Resp BP Pulse Ox 06/17/19 03:30 97.9 F 78 18 122/80 96 06/17/19 00:34 99 06/16/19 23:31 85 128/73 06/16/19 20:00 98.5 F 83 20 119/82 99 Weight Weight 192 lb 14.472 oz I&O: 06/16/19 06/17/19 06/18/19 06:59 06:59 06:59 Intake Total 1540 1680 Balance 1540 1680 Result Diagrams: 06/13/19 10:19 06/13/19 10:19 Hospitalist ROS - Review of Systems Constitutional: denies: fever, chills Respiratory: denies: cough, shortness of breath Cardiovascular: reports: chest pain. denies: palpitations, orthopnea Gastrointestinal: denies: nausea, vomiting, abdominal pain - Medication Medications: Active Medications Generic Name Dose Route Start Last Admin Trade Name Freq PRN Reason Stop Dose Admin Amlodipine Besylate 10 mg 06/14/19 09:00 06/16/19 05:54 Norvasc PO 10 mg DAILY [facility] Administration Aspirin 81 mg 06/15/19 09:00 06/16/19 05:53 Aspirin Chewable PO 81 mg DAILY [facility] Administration Famotidine 20 mg 06/13/19 21:00 06/16/19 21:00 Pepcid PO 20 mg BID [facility] Administration Ibuprofen 400 mg 06/15/19 17:08 06/16/19 13:07 Motrin PO 400 mg Q6H PRN Administration Pain Metoprolol Tartrate 50 mg 06/14/19 09:00 06/16/19 05:54 Lopressor PO 50 mg DAILY [facility] Administration Miscellaneous Medication 2 gm 06/14/19 21:00 06/16/19 21:00 Vascepa PO 2 gm BID [facility] Administration Nitroglycerin 0.5 inch 06/14/19 22:00 06/16/19 21:01 Nitro-Bid 2% Ointment TOP Not Given Q8HR [facility] Rosuvastatin Calcium 10 mg 06/14/19 09:00 06/16/19 05:53 Crestor PO 10 mg DAILY [facility] Administration Sodium Chloride 10 ml 06/16/19 21:00 06/16/19 21:08 Flush - Normal Saline IVF 10 ml Q12HR [facility] Administration - Exam General Appearance: NAD, awake alert ENT: moist mucosa Heart: RRR, no murmur, no gallops, no rubs Respiratory: CTAB, no wheezes, no rales, no ronchi Gastrointestinal: soft, non-tender, non-distended, normal bowel sounds Psychiatric: normal affect, normal behavior, A&O x 3 Hosp A/P (1) Chest pain, rule out acute myocardial infarction Code(s): R07.9 - CHEST PAIN, UNSPECIFIED Status: Acute (2) CAD (coronary artery disease) Code(s): I25.10 - ATHSCL HEART DISEASE OF [place] CORONARY ARTERY W/O ANG PCTRS Status: Chronic Qualifiers: Coronary Disease-Associated Artery/Lesion type: [place] artery (3) HTN (hypertension) Code(s): I10 - ESSENTIAL (PRIMARY) HYPERTENSION Status: Chronic (4) HLD (hyperlipidemia) Code(s): E78.5 - HYPERLIPIDEMIA, UNSPECIFIED Status: Chronic (5) Tobacco abuse Code(s): Z72.0 - TOBACCO USE Status: Chronic - Plan Cath with progression of RCA disease, no intervention, also with 50% LAD lesion with sluggish flow resolved with adenosine No stents, no surgery recommended. Dr. Null to adjust medications Continue BP meds and statin Cleared for d/c by Dr. Null. Will d/c home.
[2019-06-17] MEDS: Famotidine 20 MG TAB PO SCH (08:47)
[2019-06-17] MEDS: Amlodipine 10 MG TAB PO SCH (08:47)
[2019-06-17] MEDS: Aspirin Chewable 81 MG TAB PO SCH (08:47)
[2019-06-17] MEDS: Icosapent Ethyl 1 GM CAPSULE PO SCH (08:49)
[2019-06-17] MEDS: Metoprolol Tartrate 50 MG TAB PO SCH (08:50)
[2019-06-17] MEDS: Rosuvastatin 10 MG TAB PO SCH (08:50)
[2019-06-17 11:15] VITALS: BP 119/82; TEMP 97.6
--- NOTE | 2019-06-17 11:37 | PDOC.CPN ---
- Subjective Date: 06/17/19 Time: 08:30 Interval history: The pt seen and examined. No overnight events. No cardiac complaints. - Objective Allergies/Adverse Reactions: Allergies Allergy/AdvReac Type Severity Reaction Status Date / Time lisinopril Allergy Verified 06/13/19 13:01 Vital Signs & Weight: Vital Signs Temp Pulse Resp BP BP Pulse Ox 06/17/19 11:09 97.6 F 67 16 119/82 100 06/17/19 07:38 97.5 F L 82 18 132/85 98 06/17/19 03:30 97.9 F 78 18 122/80 96 06/17/19 00:34 99 Weight 192 lb 14.472 oz - Quality Measures Condition: Coronary Artery Disease CV meds: Beta Padmini: Yes, Statin: Yes, ASA: Yes - Physical Exam General: alert & oriented x3 Neck: supple neck Cardiac: regular rate and rhythm, S1/S2 Lungs: decreased breath sounds Neuro: cranial nerve 2-12 intact Abdomen: unremarkable Extremities: no edema Skin: clear - Labs Result Diagrams: 06/13/19 10:19 06/13/19 10:19 Troponin/CKMB Troponin I Less than 0.010 ng/mL (< 0.028) 06/13/19 16:30 - Telemetry Sinus rhythms and dysrhythmias: sinus rhythm - Assessment/Plan Assessment/Plan: 1. CAD with s/p LHC on 06/16/2019 with 40% in LAD, 60% in mid RCAm and 40-60% in prox RCA; EF > 65%; The Rt wrist [employer] with no drainage or erythema; No cardiac complaints. On Metoprolol, ASA, Rovastatin. 2. HTN - stable with current med 3. HLD - well controlled with Crestor; 4. Hypertriglyceridemia - on Vascepa 2gm BID; 5. Tobacco abuse - she is willing to start smoking cessation 6. obese - she is will to start weight management MAR reviewed *s/p LHC on 06/16/2019 with 40% in LAD, 60% in mid RCAm and 40-60% in prox RCA ; EF > 65% * From Cardiac standpoint, the pt is stable to d/c home and f/u with Dr Null' office in 2 wks. I agree with the above A/P by the [facility] NURSE> The pt. has what appears to be endothelial dysfunction. She must avaoid all nicotine products. Continue NTG as needed, beta blockers. it would be good if she could take PINO-I but she states that she has an allergy. Continue high dose statins and Vascepa. caitlyn
--- NOTE | 2019-06-17 19:50 | DIS ---
DATE OF ADMISSION: 06/13/2019 DATE OF DISCHARGE: 06/17/2019 PRIMARY CARE PROVIDER: Karon Terry MD REASON FOR ADMISSION: Chest pain. DIAGNOSES AT DISCHARGE: 1. Chest pain, noncardiac. 2. Coronary artery disease. 3. Hypertension. 4. Hyperlipidemia. 5. Tobacco abuse. PROCEDURES: 1. Nuclear medicine stress testing showing no evidence for reversible defect, normal left ventricular ejection fraction, but elevation of the transient ischemic dilatation ratio to 1.3. 2. Cardiac catheterization showing ejection fraction of 65% and LAD stenosis of 50% with some sluggish flow down the left system, resolved with adenosine and lesions of the RCA, 50% at the ostium and 60% to 70% distal. CONSULTATIONS: Cardiology, Dr. Null. SUMMARY OF HOSPITAL COURSE: This is a 53-year-old white female, presented to the emergency room with 1-to 2-day history of increasing left upper chest pain, started off in her neck and arm then went to her chest, felt deeper than just the muscles, not changed with deep breaths or with movement. She was observed in the hospital, had negative troponins, had a stress test that did show an elevated ischemic index and so Dr. Aguilera saw her for Dr. Null. He changed her medications and then Dr. Null evaluated her in the next day and did a cardiac catheterization with above results. On the day of discharge, the patient was doing better with decreased pain and is being discharged home. DISCHARGE MANAGEMENT: Location: Discharged home. Activity: As tolerated. Diet: Healthy heart diet. Followup: Follow up with Dr. Null in 2 to [address] Terry in 7 days. DISCHARGE MEDICATIONS: 1. Vascepa 2 g twice a day, 120 caps dispensed. 2. Amlodipine 10 mg daily. 3. Aspirin 325 mg daily. 4. Fish oil 1000 mg daily. 5. Ibuprofen as needed for pain. 6. Metoprolol tartrate 50 mg daily. 7. Rosuvastatin 10 mg daily. Job ID: [id number]
--- NOTE | 2019-06-20 14:49 | EKG ---
Test Reason : Blood Pressure : / mmHG Vent. Rate : 075 BPM Atrial Rate : 075 BPM P-R Int : 172 ms QRS Dur : 072 ms QT Int : 398 ms P-R-T Axes : 004 -13 044 degrees QTc Int : 444 ms Normal sinus rhythm Septal infarct , age undetermined Abnormal ECG Confirmed by DAVID COREAS ([id number]), movie editor JUSTA BARRAZA ([id number] on 06/20/2019 2:48:53 PM Referred By: Confirmed By:DAVID COREAS
== END 2019-06-17 11:25 | disposition home or self-care (01) ==
LOC: ERS 09:44 → 2NO 11:37
PROVIDERS: ADMIT Family Medicine; ATTEND Family Medicine
PROC: 4A023N7 Measurement of Cardiac Sampling and Pressure, Left Heart, Percutaneous Approach (ICD-10-PCS; principal; 2019-06-16)
PROC: B2111ZZ Fluoroscopy of Multiple Coronary Arteries using Low Osmolar Contrast (ICD-10-PCS; 2019-06-16)
DX: R07.89 Other chest pain (principal); I25.10 Atherosclerotic heart disease of native coronary artery without angina pectoris; I10 Essential (primary) hypertension; E78.1 Pure hyperglyceridemia; E78.00 Pure hypercholesterolemia, unspecified; F17.210 Nicotine dependence, cigarettes, uncomplicated; E66.9 Obesity, unspecified; Z68.33 Body mass index [BMI] 33.0-33.9, adult; Z79.82 Long term (current) use of aspirin; Z79.899 Other long term (current) drug therapy; Z88.8 Allergy status to other drugs, medicaments and biological substances
CPT/HCPCS: 71045; 78452; 80053; 80061; 84484 ×2; 85025; 85347; 93005; 93017; 93458; 93571; 94760 ×2; 96372 ×2; 99285; A9500; C1769 ×2; C1887; G0378 ×6; J1644 ×2; J1650 ×2; J2250; Q9967; 36415; 99152; 99153; J0153; J3010

== ENCOUNTER 2019-11-03 15:40 | Emergency (ER) | payer MEDICARE ==
--- NOTE | 2019-11-03 19:24 | ULT ---
VENOUS ULTRASOUND LEFT UPPER EXTREMITY: History: Left upper extremity swelling. Technique: Grayscale, color flow, and spectral Doppler imaging of the deep venous system of the left upper extremity was performed. FINDINGS: There is good flow and spectral wave forms in the deep venous of the left upper extremity including t he subclavian, axillary, brachial, radial, ulnar, basilic, and cephalic veins. IMPRESSION: No evidence of DVT in the left upper extremity. POS: AMINATAA
== END 2019-11-03 18:50 | disposition home or self-care (01) ==
LOC: ERS 15:40
DX: M79.662 Pain in left lower leg (principal); E78.5 Hyperlipidemia, unspecified; E78.00 Pure hypercholesterolemia, unspecified; I10 Essential (primary) hypertension; F17.210 Nicotine dependence, cigarettes, uncomplicated; Z79.82 Long term (current) use of aspirin

== ENCOUNTER 2021-09-19 04:28 | Emergency (ER) | payer MEDICARE ==
[2021-09-19 05:26] LABS: #Basophils 0.1 thou/uL (0.0-0.2); #Eosinphils 0.2 thou/uL (0.0-0.7); #Lymphocytes 2.1 thou/uL (1.20-3.40); #Monocytes 0.5 thou/uL (0.11-0.59); #Neutrophils 2.3 thou/uL (1.40-6.50); %Basophils 1.2 % (0.0-1.0); %Eosinophils 3.9 % (0.0-10.0); %Lymphocytes 40.3 % (21.0-51.0); %Monocytes 9.1 % (0.0-10.0); %Neutrophils 45.5 % (42.0-75.0); Hemoglobin 14.3 g/dL (12.0-16.0); Mean Corpuscular HGB CONC 33.2 g/dL (32.0-36.0); Mean Corpuscular Hemoglobin 31.3 pg (27.0-31.0); Mean Corpuscular Volume 94.5 fL (78.0-98.0); Mean Platelet Volume 7.7 fL (7.4-10.4); Platelet Count 215 thou/uL (130-400); RBC Distribution Width 11.8 % (11.5-14.5); Red Blood Cell (RBC) Count 4.56 mill/uL (4.20-5.40); White Blood Cell (WBC) Count 5.1 thou/uL (4.8-10.8)
[2021-09-19 06:12] LABS: Albumin 4.6 g/dL (3.5-5.0); Anion Gap 13 mmol/L (10-20); BUN (Urea Nitrogen) 16 mg/dL (9.8-20.1); Calc. Creatinine Clearance 0 mL/min (70-130); Carbon Dioxide 27 mmol/L (22-29); Chloride 105 mmol/L (98-107); Potassium 3.9 mmol/L (3.5-5.1); Sodium 141 mmol/L (136-145)
[2021-09-19 06:13] LABS: ALT (SGPT) 32 U/L (8-55); AST (SGOT) 24 U/L (5-34); Alkaline Phosphatase 72 U/L (40-110); Bilirubin, Total 0.5 mg/dL (0.2-1.2); Calcium 10.2 mg/dL (7.8-10.44); Globulin 2.6 g/dL (2.4-3.5); Glucose 97 mg/dL (70-105); Protein, Total 7.2 g/dL (6.0-8.3)
== END 2021-09-19 06:40 | disposition home or self-care (01) ==
LOC: ERS 04:28
DX: M79.605 Pain in left leg (principal); E78.5 Hyperlipidemia, unspecified; E78.00 Pure hypercholesterolemia, unspecified; I10 Essential (primary) hypertension; F17.210 Nicotine dependence, cigarettes, uncomplicated; Z79.899 Other long term (current) drug therapy; Z79.82 Long term (current) use of aspirin
CPT/HCPCS: 36415; 80053; 85025

== ENCOUNTER 2021-10-11 13:27 | Outpatient (CLI) | payer OTHER | END 2021-10-11 13:28 | disposition home or self-care (01) | LOC: BICMAMMO 13:27 | PROVIDERS: ATTEND Family Medicine | DX: Z12.31 Encounter for screening mammogram for malignant neoplasm of breast (principal) | CPT/HCPCS: 77063; 77067 ==

== ENCOUNTER 2023-02-01 14:56 | Inpatient (IN) | payer OTHER ==
[2023-02-01] MEDS ORDERED: Nitroglycerin 2% Ointment 1 INCH/1 GM Packet ONE (15:15)
[2023-02-01] MEDS ORDERED: Aspirin Chewable 81 MG TAB ONE (15:15)
[2023-02-01 15:26] LABS: #Eosinphils 0.1 thou/uL (0.0-0.7); #Monocytes 0.4 thou/uL (0.11-0.59); #Neutrophils 3.6 thou/uL (1.40-6.50); %Basophils 0.7 % (0.0-1.0); %Eosinophils 2.3 % (0.0-10.0); %Lymphocytes 26.2 % (21.0-51.0); %Monocytes 6.6 % (0.0-10.0); Hematocrit 42.7 % (36.0-47.0); Hemoglobin 14.2 g/dL (12.0-16.0); Mean Corpuscular HGB CONC 33.3 g/dL (32.0-36.0); Mean Corpuscular Hemoglobin 29.4 pg (27.0-31.0); Mean Corpuscular Volume 88.4 fl (78.0-98.0); Mean Platelet Volume 10.6 fL (7.4-10.4); Platelet Count 226 10x3/uL (130-400); RBC Distribution Width 12.6 % (11.5-14.5); Red Blood Cell (RBC) Count 4.83 mill/uL (4.20-5.40); White Blood Cell (WBC) Count 5.6 10x3/uL (4.8-10.8)
[2023-02-01 16:15] LABS: Troponin I Less than 0.010 ng/mL (< 0.028)
[2023-02-01] MEDS ORDERED: Nitroglycerin 0.4 MG TAB (25 Tab Bottle) SL PRN (17:41)
[2023-02-01 19:42] LABS: ALT (SGPT) 23 U/L (8-55); AST (SGOT) 25 U/L (5-34); Albumin 4.2 g/dL (3.5-5.0); Alkaline Phosphatase 64 U/L (40-110); Anion Gap 14 mmol/L (10-20); BUN (Urea Nitrogen) 14 mg/dL (9.8-20.1); Bilirubin, Total 0.2 mg/dL (0.2-1.2); Calc. Creatinine Clearance 0 mL/min (70-130); Carbon Dioxide 24 mmol/L (22-29); Chloride 108 mmol/L (98-107); Estimated GFR 82; Globulin 2.4 g/dL (2.4-3.5); Glucose 94 mg/dL (70-105); Potassium 4.1 mmol/L (3.5-5.1); Protein, Total 6.6 g/dL (6.0-8.3); Sodium 142 mmol/L (136-145)
[2023-02-01 19:46] VITALS: BMI 30.7
[2023-02-01 19:46] LABS: Troponin I Less than 0.010 ng/mL (< 0.028)
[2023-02-01] MEDS ORDERED: FLU VACC QS2023-24(6MOS UP)/PF 60 MCG/0.5 ML SYRINGE IM ONE (20:30)
[2023-02-01] MEDS ORDERED: Ibuprofen 200 MG TAB PO PRN (20:45)
[2023-02-01] MEDS: Icosapent Ethyl 1 GM CAPSULE PO SCH (20:56)
[2023-02-01] MEDS: Famotidine 20 MG TAB PO SCH (20:57)
[2023-02-01] MEDS ORDERED: Aspirin 81 mg Enteric Coated Tablet PO SCH (21:00)
[2023-02-01 21:18] LABS: Troponin I Less than 0.010 ng/mL (< 0.028)
[2023-02-02 05:08] LABS: #Eosinphils 0.1 thou/uL (0.0-0.7); #Monocytes 0.4 thou/uL (0.11-0.59); #Neutrophils 1.7 thou/uL (1.40-6.50); %Basophils 0.3 % (0.0-1.0); %Eosinophils 3.4 % (0.0-10.0); %Lymphocytes 39.9 % (21.0-51.0); %Monocytes 10.2 % (0.0-10.0); %Neutrophils 45.7 % (42.0-75.0); Hematocrit 36.2 % (36.0-47.0); Hemoglobin 11.8 g/dL (12.0-16.0); Mean Corpuscular HGB CONC 32.6 g/dL (32.0-36.0); Mean Corpuscular Hemoglobin 29.6 pg (27.0-31.0); Mean Corpuscular Volume 90.7 fl (78.0-98.0); Mean Platelet Volume 10.9 fL (7.4-10.4); Platelet Count 176 10x3/uL (130-400); RBC Distribution Width 12.7 % (11.5-14.5); Red Blood Cell (RBC) Count 3.99 mill/uL (4.20-5.40); White Blood Cell (WBC) Count 3.8 10x3/uL (4.8-10.8)
[2023-02-02 05:38] LABS: Anion Gap 12 mmol/L (10-20); BUN (Urea Nitrogen) 16 mg/dL (9.8-20.1); Calc. Creatinine Clearance 108 mL/min (70-130); Calcium 9.3 mg/dL (7.8-10.44); Carbon Dioxide 24 mmol/L (22-29); Cardiac Risk 2.6 (Less than 4.5); Chloride 109 mmol/L (98-107); Cholesterol 83 mg/dl (< 200 Desired); Estimated GFR 94; Glucose 93 mg/dL (70-105); HDL Cholesterol 32 mg/dL (>60 Neg Risk); LDL Cholesterol, Calculated 35 mg/dL; Potassium 3.8 mmol/L (3.5-5.1); Sodium 141 mmol/L (136-145); Triglycerides 82 mg/dL (Less than 150)
[2023-02-02] MEDS ORDERED: Acetaminophen 325 MG TAB PO PRN (08:43)
[2023-02-02] MEDS ORDERED: Metoprolol Tartrate 50 MG TAB PO SCH (09:00)
[2023-02-02] MEDS ORDERED: Aspirin 325 MG TAB PO SCH (09:00)
[2023-02-02] MEDS ORDERED: Rosuvastatin 10 MG TAB PO SCH ×2 (09:00→21:00)
[2023-02-02] MEDS ORDERED: HYDROcodone/Acetaminophen 5/325 mg Tablet PO PRN (12:29)
[2023-02-02] MEDS: Aspirin 81 mg Enteric Coated Tablet PO SCH (15:36)
[2023-02-02] MEDS: Amlodipine 10 MG TAB PO SCH (15:36)
[2023-02-02] MEDS: Famotidine 20 MG TAB PO SCH ×2 (15:37→20:20)
[2023-02-02] MEDS: Fish Oil 1,000 MG CAP PO SCH (15:38)
[2023-02-02] MEDS: Icosapent Ethyl 1 GM CAPSULE PO SCH ×2 (15:42→20:20)
[2023-02-02] MEDS ORDERED: Regadenoson 0.4 MG/5 ML SYRINGE ONE (15:50)
[2023-02-03 05:50] LABS: #Eosinphils 0.2 thou/uL (0.0-0.7); #Monocytes 0.3 thou/uL (0.11-0.59); #Neutrophils 1.5 thou/uL (1.40-6.50); %Basophils 0.8 % (0.0-1.0); %Eosinophils 4.2 % (0.0-10.0); %Lymphocytes 45.2 % (21.0-51.0); %Monocytes 7.8 % (0.0-10.0); %Neutrophils 41.7 % (42.0-75.0); Hematocrit 36.9 % (36.0-47.0); Mean Corpuscular HGB CONC 32.5 g/dL (32.0-36.0); Mean Corpuscular Hemoglobin 29.4 pg (27.0-31.0); Mean Corpuscular Volume 90.4 fl (78.0-98.0); Mean Platelet Volume 10.7 fL (7.4-10.4); Platelet Count 186 10x3/uL (130-400); RBC Distribution Width 12.8 % (11.5-14.5); Red Blood Cell (RBC) Count 4.08 mill/uL (4.20-5.40); White Blood Cell (WBC) Count 3.6 10x3/uL (4.8-10.8)
[2023-02-03 06:14] LABS: Anion Gap 12 mmol/L (10-20); BUN (Urea Nitrogen) 14 mg/dL (9.8-20.1); Calc. Creatinine Clearance 112 mL/min (70-130); Calcium 9.6 mg/dL (7.8-10.44); Carbon Dioxide 23 mmol/L (22-29); Chloride 110 mmol/L (98-107); Estimated GFR 99; Glucose 96 mg/dL (70-105); Potassium 3.7 mmol/L (3.5-5.1); Sodium 141 mmol/L (136-145)
[2023-02-03] MEDS: Amlodipine 10 MG TAB PO SCH (09:10)
[2023-02-03] MEDS: Aspirin 81 mg Enteric Coated Tablet PO SCH (09:10)
[2023-02-03] MEDS: Icosapent Ethyl 1 GM CAPSULE PO SCH (09:10)
[2023-02-03] MEDS: Fish Oil 1,000 MG CAP PO SCH ×2 (09:10→09:21)
[2023-02-03] MEDS: Famotidine 20 MG TAB PO SCH ×2 (09:11→09:20)
[2023-02-03 12:21] VITALS: BP 115/72; TEMP 98.4
== END 2023-02-03 15:36 | disposition home or self-care (01) | DRG 313 ==
LOC: ERS 14:56 → 2SW 17:04 → OBSVTOIN 02-03 14:23
PROVIDERS: ADMIT Internal Medicine; ATTEND Internal Medicine
DX: R07.9 Chest pain, unspecified (principal); I10 Essential (primary) hypertension; I25.10 Atherosclerotic heart disease of native coronary artery without angina pectoris; E78.5 Hyperlipidemia, unspecified; E78.1 Pure hyperglyceridemia; Z82.49 Family history of ischemic heart disease and other diseases of the circulatory system; Z79.82 Long term (current) use of aspirin; Z79.899 Other long term (current) drug therapy; Z88.8 Allergy status to other drugs, medicaments and biological substances; Z98.890 Other specified postprocedural states; Z87.891 Personal history of nicotine dependence; Z86.16 Personal history of COVID-19
CPT/HCPCS: 36415; 71045; 78452; 80048; 80053; 80061; 83880; 84484; 85025; 93005; 93017; 94760; 96372; A9502; G0378; J1650; J2785

== ENCOUNTER 2024-01-01 19:14 | Emergency (ER) | payer MEDICARE, OTHER ==
[~2024-01-01 19:14] MED LIST: Iopamidol-370 76% 500 ML MDV (1 ML CHARGE) ONE
[2024-01-01 19:50] LABS: #Basophils 0.03 10x3/uL (0.0-0.2); %Basophils 0.3 % (0.0-1.0); %Eosinophils 1.9 % (0.0-10.0); %Lymphocytes 19.6 % (21.0-51.0); %Monocytes 5.9 % (0.0-10.0); %Neutrophils 72.1 % (42.0-75.0); Hematocrit 40.9 % (36.0-47.0); Hemoglobin 13.3 g/dL (12.0-16.0); Mean Corpuscular HGB CONC 32.5 g/dL (32.0-36.0); Mean Corpuscular Hemoglobin 29.4 pg (27.0-31.0); Mean Corpuscular Volume 90.5 fL (78.0-98.0); Platelet Count 211 10x3/uL (130-400); RBC Distribution Width 13.3 % (11.5-14.5); Red Blood Cell (RBC) Count 4.52 mill/uL (4.20-5.40)
[2024-01-01 20:08] LABS: ALT (SGPT) 14 U/L (8-55); AST (SGOT) 20 U/L (5-34); Alkaline Phosphatase 70 U/L (40-110); Anion Gap 12 mmol/L (10-20); BUN (Urea Nitrogen) 14 mg/dL (9.8-20.1); Bilirubin, Total 0.3 mg/dL (0.2-1.2); Calc. Creatinine Clearance 0 mL/min (70-130); Carbon Dioxide 26 mmol/L (22-29); Chloride 105 mmol/L (98-107); Estimated GFR 94; Globulin 3.2 g/dL (2.4-3.5); Glucose 106 mg/dL (70-105); Lipase 31 U/L (8-78); Potassium 4.2 mmol/L (3.5-5.1); Protein, Total 7.2 g/dL (6.0-8.3); Sodium 139 mmol/L (136-145)
[2024-01-01 20:20] LABS: Bacteria/HPF None Seen HPF (None Seen); Bilirubin Negative (Negative); Blood, Urine Negative (Negative); CAUTI Indications for Culture Pelvic or flank pain; Clarity Clear (Clear); Glucose, Urine (Dipstick) Normal (Negative); Ketone, Urine Negative (Negative); Leukocyte Negative Leu/uL (Negative); Nitrite Negative (Negative); Protein, Urine (Dipstick) Negative (Neg-Trace); RBC/HPF 0-3 HPF (0-3); Specific Gravity, Urine 1.002 (1.002-1.036); Squamous Epithelial None Seen HPF (0-3); Urobilinogen Normal mg/dL (Less than 2); WBC/HPF None Seen HPF (0-3)
[2024-01-01 20:22] LABS: Urine Culture Reflex No No
[2024-01-01] MEDS ORDERED: Morphine 4 MG/ML VIAL ONE (20:27)
[2024-01-01] MEDS ORDERED: Ondansetron PF 4 MG/2 ML Vial ONE (20:27)
== END 2024-01-01 22:39 | disposition home or self-care (01) ==
LOC: ERS 19:14
DX: K52.89 Other specified noninfective gastroenteritis and colitis (principal); Z79.899 Other long term (current) drug therapy; Z79.82 Long term (current) use of aspirin; E78.5 Hyperlipidemia, unspecified; I10 Essential (primary) hypertension
CPT/HCPCS: 74177; 80053; 81001; 83605; 83690; 85025; 93005; J2272; J2405; Q9967; 36415; 96374; 96375

== ENCOUNTER 2025-01-21 17:37 | Emergency (ER) | payer OTHER ==
[2025-01-21] MEDS ORDERED: Acetaminophen 500 MG TAB ONE (18:24)
[2025-01-21 18:42] LABS: #Basophils Less than 0.03 10x3/uL (0.0-0.2); #Eosinophils 0.22 10x3/uL (0.0-0.7); #Monocytes 0.48 10x3/uL (0.11-0.59); #Neutrophils 3.09 10x3/uL (1.40-6.50); %Basophils 0.4 % (0.0-1.0); %Eosinophils 3.9 % (0.0-10.0); %Lymphocytes 31.4 % (21.0-51.0); %Monocytes 8.6 % (0.0-10.0); %Neutrophils 55.5 % (42.0-75.0); Hematocrit 40.2 % (36.0-47.0); Hemoglobin 13.3 g/dL (12.0-16.0); Mean Corpuscular Hemoglobin 29.2 pg (27.0-31.0); Mean Corpuscular Volume 88.4 fL (78.0-98.0); Platelet Count 202 10x3/uL (130-400); Red Blood Cell (RBC) Count 4.55 mill/uL (4.20-5.40); White Blood Cell (WBC) Count 5.57 10x3/uL (4.8-10.8)
[2025-01-21 18:56] LABS: ALT (SGPT) 23 U/L (Less than 34); AST (SGOT) 25 U/L (11-34); Albumin 4.3 g/dL (3.1-4.5); Alkaline Phosphatase 81 U/L (40-110); Anion Gap 15 mmol/L (10-20); BUN (Urea Nitrogen) 18 mg/dL (9.8-20.1); Bilirubin, Total 0.3 mg/dL (0.3-1.2); Calc. Creatinine Clearance 0 mL/min (70-130); Calcium 10.3 mg/dL (7.8-10.44); Carbon Dioxide 26 mmol/L (22-29); Chloride 104 mmol/L (98-107); Globulin 2.6 g/dL (2.4-3.5); Glucose 106 mg/dL (70-105); Lipase 46 U/L (8-78); Potassium 3.7 mmol/L (3.5-5.1); Sodium 141 mmol/L (136-145)
== END 2025-01-21 22:58 | disposition home or self-care (01) ==
LOC: ERS 17:37
DX: R07.89 Other chest pain (principal); I10 Essential (primary) hypertension; I25.10 Atherosclerotic heart disease of native coronary artery without angina pectoris; E78.5 Hyperlipidemia, unspecified; Z79.899 Other long term (current) drug therapy; Z79.82 Long term (current) use of aspirin
CPT/HCPCS: 36415; 71045; 80053; 83690; 84484; 85025; 93005